=== PATIENT | female | born 1985 | race Caucasian/White ===

== ENCOUNTER 2017-07-13 08:52 | Emergency (ER) | payer BC ==
[~2017-07-13] VITALS: Ht 167.6 cm; Wt 72.1 kg
[~2017-07-13 08:52] MED LIST: FLOMAX0.4 MG PO; FLUOXETINE HCL20 MG PO; KEFLEX500 MG PO; LEVAQUIN750 MG PO; METHYLPHENIDATE36 MG PO; NO HOME MEDS; PERCOCET 5/31 TABLET PO; RANITIDINE HCL150 MG PO; VICODIN 5-3001 EACH PO; ZOFRAN ODT4 MG PO; ZOFRAN4 MG PO
[2017-07-13 09:46] LABS: EOSINOPHIL (%) 1.1 % (0-5); EOSINOPHIL COUNT 0.1 K/uL (0-0.3); HEMATOCRIT 41.6 % (36.0-46.0); IMMATURE GRANULOCYTE (%) 0.3 % (0.0-0.7); LYMPHOCYTE COUNT 2.6 K/uL (1.0-2.8); MCH 27.3 PG (29.0-34.0); MCHC 32.9 G/DL (30.0-36.0); MEAN PLAT.VOLUME 11.9 uM^3 (9.5-12.4); MONOCYTE (%) 5.2 % (3-12); MONOCYTE COUNT 0.5 K/uL (0-0.8); NEUTROPHIL (%) 68.4 % (45-76); PLATELET COUNT 195 K/uL (156-360); RBC DIS.WIDTH-CV 13.2 % (11.8-14.6); RED BLOOD COUNT 5.01 M/uL (3.80-5.20); WHITE BLOOD COUNT 10.3 K/uL (4.1-10.2)
[2017-07-13 09:54] LABS: CHLORIDE 109 mEq/L (99-109); POTASSIUM 3.7 mEq/L (3.7-5.4); SODIUM 142 mEq/L (136-147)
[2017-07-13 09:55] LABS: GLUCOSE 89 mg/dL (70-99)
[2017-07-13 09:57] LABS: ANION GAP 11 MEQ/L (2-14)
[2017-07-13 09:59] LABS: GFR ESTIMATE (CALCULATED) > 59 mL/min/
[2017-07-13 10:00] LABS: UREA NITROGEN (BUN) 16 mg/dL (9-23)
[2017-07-13 10:03] LABS: ADD MIUA? YES; BILIRUBIN NEGATIVE; BLOOD MODERATE; COLOR YELLOW ((YELLOW)); GLUCOSE (STRIP) NEGATIVE; KETONES NEGATIVE; LEUKOCYTES MODERATE; NITRITE NEGATIVE; PROTEIN (STRIP) 30; SPECIFIC GRAVITY 1.018 (1.000-1.030); UROBILINOGEN 0.2 MG/DL (0.2-1.0)
[2017-07-13 10:07] LABS: BACTERIA RARE /HPF; EPITHELIAL CELLS RARE /HPF; MUCUS TRACE /LPF; RED BLOOD CELLS TNTC /HPF (0-5); WHITE BLOOD CELLS TNTC /HPF (0-5)
[2017-07-13 10:09] LABS: QUANTITATIVE HCG < 4.0 MIU/ML
[2017-07-13] MEDS ORDERED: PERCOCET 5/31 TABLET PO (13:33)
[2017-07-13] MEDS ORDERED: CIPRO500 MG PO (13:33)
[2017-07-13 14:11] VITALS: BP 141/101
== END 2017-07-13 13:45 | disposition home or self-care (01) ==
LOC: EME 08:52
PROVIDERS: Emergency Medicine
DX: N20.2 Calculus of kidney with calculus of ureter (principal); N39.0 Urinary tract infection, site not specified; Z87.442 Personal history of urinary calculi
CPT/HCPCS: 74176; 80048; 81003; 84702; 85025; 87086; 99281; 99284; J0696; J2270; J2405; J7030; J7050